=== PATIENT | female | born 1995 | race Two or more races ===

== ENCOUNTER 2020-07-20 00:30 | Emergency (ER) | payer MEDICAID ==
[2020-07-20] MEDS ORDERED: Acetaminophen/oxyCODONE 325-5 MG Tab PO ONE (00:45)
--- NOTE | 2020-07-20 00:45 | EDM.PDOC ---
ED HPI GENERAL MEDICAL PROBLEM - General Stated Complaint: OVARIAN CYST Time Seen by Provider: 07/20/20 00:40 Source of Information: Reports: Patient History Limitations: Reports: No Limitations - History of Present Illness INITIAL COMMENTS - FREE TEXT/NARRATIVE: 25-year-old female with history of chlamydia presents with left labia swelling and pain for 3 days. Denies fever, chills, diarrhea, vaginal discharge. She is sexually active with her partner of 5 years. ROS: A 10-point review of systems, other than pertinent positives and negatives as stated per HPI, is otherwise negative Past medical history: No additional pertinent history Past Surgical history: No additional pertinent history Social history: No additional pertinent history Family history: No additional pertinent history PHYSICAL EXAM General: AOx4, GCS = 15, moderate distress HEENT: dry mucous membrane Neck: supple, no meningismus, no Kernig or Brudzinski Cardiac: S1S2 RRR Respiratory: CTAB, no crackles or rales, no wheezing Abdomen: Soft, nontender, no rebound or guarding, nondistended, no pulsatile mass. : tender golfball size bartholin abscess to left labia. Back: nontender Musculoskeletal: NVI distally, no deformity Neuro: No focal deficits Vaginal Pain Score (Numeric/FACES): 10 - Related Data Allergies Allergy/AdvReac Type Severity Reaction Status Date / Time No Known Allergies Allergy Verified 07/20/20 00:47 Home Meds: Home Meds Acetaminophen/oxyCODONE [Percocet 325-5 MG] 1 each PO Q6H PRN #12 tab 07/20/20 [Rx] ED ROS GENERAL - Review of Systems Review Of Systems: Comprehensive ROS is negative, except as noted in HPI. ED EXAM, RENAL/ - Physical Exam Exam: See Below (see dictation) ED PROCEDURES - Additional/Other Procedure(s) Procedure(s) (Free Text): INCISION & DRAINAGE: Time performed: 215. A time-out was completed verifying correct patient, procedure, site, positioning, and special equipment if applicable. Indication: Bartholin abscess. Location: Left labia. The area of maximal induration and fluctuance was anesthetized using lidocaine 1% with epinephrine, and a total of 10ml was administered. Incision was created with a #11 blade scalpel. Abscess was manually decompressed and probed, with loculations decompressed. This was met with large amount 10ml of prurulent drainage. The wound was packed with packing tape. Patient tolerated well. Time spent: 30min Course - Vital Signs Last Recorded V/S: Last Vital Signs Temp 96.9 F 07/20/20 00:45 Pulse 102 H 07/20/20 00:45 Resp 18 07/20/20 00:45 BP 122/86 07/20/20 00:45 Pulse Ox 99 07/20/20 00:45 - Orders/Labs/Meds Orders: Active Orders 24 hr Category Date Time Status Pelvic Exam, Set Up [RC] ASDIRECTED Care 07/20/20 01:02 Active TRICH/LEODAN/CAND BY DNA PROBE [MOLEC] Stat Lab 07/20/20 01:01 Ordered UA W/MICROSCOPIC [URIN] Stat Lab 07/20/20 01:01 Ordered Meds: Medications Discontinued Medications Generic Name Dose Route Start Last Admin Trade Name Freq PRN Reason Stop Dose Admin Lidocaine/Epinephrine 20 ml 07/20/20 02:12 Xylocaine 1% With Epinephrine 1:100,000 INJECT 07/20/20 02:13 ONETIME ONE Oxycodone/Acetaminophen 1 tab 07/20/20 00:45 07/20/20 00:50 Percocet 325-5 Mg PO 07/20/20 00:46 1 tab ONETIME ONE Administration - Re-Assessments/Exams Free Text/Narrative Re-Assessment/Exam: 07/20/20 02:52 After I&D in the ER, she improved and is currently stable for discharge. Swabs were sent and results pending. I advised the patient to return to the ER for reevaluation if symptoms worsened, including fever, worsening pain, or any other worrisome symptoms. I instructed the patient to follow up with [facility] within 2-3 days for packing change. MEDICAL DECISION MAKING: I reviewed the patients past medical records, lab and radiographic findings. I discussed the case with the patient. My differential diagnosis included: bartholin cyst, Bartholin abscess. I do not suspect Rodney gangrene. Departure - Departure Time of Disposition: 02:50 Disposition: Home, Self-Care 01 Condition: Good Clinical Impression: Bartholin's gland abscess - Discharge Information *PRESCRIPTION DRUG MONITORING PROGRAM REVIEWED*: Not Applicable *COPY OF PRESCRIPTION DRUG MONITORING REPORT IN PATIENT SHASHANK: Not Applicable Prescriptions: Acetaminophen/oxyCODONE [Percocet 325-5 MG] 1 each PO Q6H PRN #12 tab PRN Reason: Pain (Moderate 4-6) Instructions: Pain Medicine Instructions, [id number] Referrals: PCP,None [Primary Care Provider] - Forms: ED Department Discharge Additional Instructions: The need for follow-up, as well as the timing and circumstances, are variable depending upon the specifics of your emergency department visit. If you don't have a primary care physician on staff, we will provide you with a referral. We always advise you to contact your personal physician following an emergency department visit to inform them of the circumstance of the visit and for follow-up with them and/or the need for any referrals to a consulting specialist. The emergency department will also refer you to a specialist when appropriate. This referral assures that you have the opportunity for follow-up care with a specialist. All of these measure are taken in an effort to provide you with optimal care, which includes your follow-up. Under all circumstances we always encourage you to contact your private physician who remains a resource for coordinating your care. When calling for follow-up care, please make the office aware that this follow-up is from your recent emergency room visit. If for any reason you are refused follow-up, please contact the [facility] Emergency Department at and asked to speak to the emergency department charge nurse. [facility] [address] [place] [id number] Sepsis Event Note (ED) - Focused Exam Vital Signs: Vital Signs Temp Pulse Resp BP Pulse Ox 07/20/20 00:45 96.9 F 102 H 18 122/86 99 - My Orders Last 24 Hours: My Active Orders 07/20/20 01:01 TRICH/LEODAN/CAND BY DNA PROBE [MOLEC] Stat UA W/MICROSCOPIC [URIN] Stat 07/20/20 01:02 Pelvic Exam, Set Up [RC] ASDIRECTED - Assessment/Plan Last 24 Hours: My Active Orders 07/20/20 01:01 TRICH/LEODAN/CAND BY DNA PROBE [MOLEC] Stat UA W/MICROSCOPIC [URIN] Stat 07/20/20 01:02 Pelvic Exam, Set Up [RC] ASDIRECTED
[2020-07-20] MEDS ORDERED: Lidocaine 1% with EPINEPHrine 1:100,000 20 ML MDV INJECT ONE (02:12)
[2020-07-20] MEDS ORDERED: Ketorolac 30 MG/ML SDV IM ONE (02:51)
== END 2020-07-20 03:14 | disposition home or self-care (01) ==
LOC: MW.ED 00:30
DX: N75.1 Abscess of Bartholin's gland (principal)
CPT/HCPCS: 56420; 87480; 87491; 87510; 87591; 87660; 96372; 99283; A9270; J1885; 10061

== ENCOUNTER 2020-11-06 09:44 | Emergency (ER) | payer OTHER ==
[2020-11-06 10:31] LABS: BLOOD UREA NITROGEN,BUN 13 mg/dL (7.0-18.0); CARBON DIOXIDE,CO2 23.6 mmol/L (21.0-32.0); CHLORIDE,CL 105 mmol/L (98-107); GLUCOSE RANDOM 87 mg/dL (74-106); LIPASE 69 U/L (73-393); POTASSIUM,K 3.8 mmol/L (3.5-5.1); SODIUM,NA 139 mmol/L (136-145)
--- NOTE | 2020-11-06 10:53 | EDM.PDOC ---
ED HPI GENERAL MEDICAL PROBLEM - General Chief Complaint: Abdominal Pain Stated Complaint: ABDOMINAL PAIN Time Seen by Provider: 11/06/20 09:57 Source of Information: Reports: Patient History Limitations: Reports: No Limitations - History of Present Illness INITIAL COMMENTS - FREE TEXT/NARRATIVE: HISTORY AND PHYSICAL: History of present illness: Patient is a 25-year-old female who presents to the emergency room with complaints of low abdominal pain. She states she woke up with the pain and proceeded to go to work. While at work she states she was unable to take the discomfort and decided to come to the emergency room. Pain is midline just below the umbilicus and describes it as cramping sensation. Patient denies any fever, chills, headache, change in vision, syncope or near syncope. Denies any chest pain, back pain, shortness of breath or cough. Denies any nausea, vomiting, diarrhea, constipation or dysuria. Has not noted any blood in urine or stool. Patient reports her menstrual period was 2 weeks ago, she typically does have heavy menses lasting 3 days. She is currently not on control and is sexually active, states there is a chance of . She has no concerns for STDs, denies any vaginal bleeding or discharge at this time. Patient has been eating and drinking appropriately. Review of systems: As per history of present illness and below otherwise all systems reviewed and negative. Past medical history: As per history of present illness and as reviewed below otherwise noncontributory. Surgical history: As per history of present illness and as reviewed below otherwise noncontributory. Social history: See social history for further information Family history: As per history of present illness and as reviewed below otherwise noncontributory. Physical exam: General: Well developed and well nourished 25 year old black female. Alert and orientated x 3. Nontoxic in appearance and in no acute distress. Vital signs are stable and have been reviewed by me. Nursing notes were reviewed. HEENT: Atraumatic, normocephalic, pupils equal and reactive bilaterally, negative for conjunctival pallor or scleral icterus, mucous membranes moist, TMs normal bilaterally, throat clear, neck supple, nontender, trachea midline. No drooling or trismus noted. No meningeal signs. No hot potato voice noted. Lungs: Clear to auscultation, breath sounds equal bilaterally, chest nontender. Normal work of breathing, no accessory muscles used. Heart: S1S2, regular rate and rhythm without overt murmur Abdomen: Soft, nondistended, mild suprapubic midline tenderness. Negative for masses or hepatosplenomegaly. Negative for costovertebral tenderness. Skin: Intact, warm, dry. No lesions or rashes noted. Hematologic: No petechiae or purpra. Mucosa appropriate color and normal nail bed color and refill. Extremities: Atraumatic, moves all extremities per self without difficulty or deficits, negative for cords or calf pain. Neurovascular unremarkable. Neuro: Awake, alert, oriented. Cranial nerves II through XII unremarkable. Cerebellum unremarkable. Motor and sensory unremarkable throughout. Exam nonfocal. Psychiatric: Mood and affect are appropriate. Normal thought process. Answering questions appropriately. Notes: Patient's lab work shows she has iron deficiency anemia. Patient states she is aware of this although does not take any iron supplements. She does not have any dizziness, fatigue, chest pain. I did encourage her to follow-up with primary care and start an [id number] iron replacement. I have talked with the patient about today's findings, in addition to providing specific details for plan of care. Reassessment at the time of disposition demonstrates that the patient is in no acute distress. The patient is stable for discharge, counseling was provided and we discussed in great detail signs and symptoms that would prompt them to return to the Emergency Department. Medication, follow up and supportive care measures were reviewed and discussed. Voices understanding and is agreeable to plan of care. Denies any further questions or concerns at this time. Diagnostics: CBC, CMP, UA, urine , lipase Therapeutics: Tramadol Prescription: None Impression: Abdominal pain Iron deficiency anemia Plan: 1. Encourage small frequent sips of fluids to prevent dehydration. [place] diet over the next 24-48 hours, advance as tolerated. 2. Tylenol and/or Ibuprofen as needed for pain and fever management. 3. If you should develop worsening symptoms, new symptoms develop or any of the symptoms we discussed - RETURN to the ED as we discussed. 4. Follow up with your primary care provider or the general surgeon as we discussed. Definitive disposition and diagnosis as appropriate pending reevaluation and review of above. Onset: Today Duration: Hour(s): Location: Reports: Abdomen middle lower abdomen Pain Score (Numeric/FACES): 4 - Related Data Allergies Allergy/AdvReac Type Severity Reaction Status Date / Time No Known Allergies Allergy Verified 11/06/20 09:57 Home Meds: Home Meds . [No Known Home Meds] 11/06/20 [History] Past Medical History - Past Health History Medical/Surgical History: Denies Medical/Surgical History HEENT History: Reports: None Cardiovascular History: Reports: None Respiratory History: Reports: None Gastrointestinal History: Reports: None Genitourinary History: Reports: None FRONT DESK ADMIN History: Reports: None Musculoskeletal History: Reports: None Neurological History: Reports: None Psychiatric History: Reports: None Endocrine/Metabolic History: Reports: None Hematologic History: Reports: None Immunologic History: Reports: None Oncologic (Cancer) History: Reports: None Dermatologic History: Reports: Eczema - Infectious Disease History Infectious Disease History: Reports: None - Past Surgical History Head Surgeries/Procedures: Reports: None Social & Family History - Tobacco Use Tobacco Use Status *Q: Never Tobacco User - Caffeine Use Caffeine Use: Reports: None - Recreational Drug Use Recreational Drug Use: Yes Recreational Drug Type: Reports: Marijuana/Hashish ED ROS GENERAL - Review of Systems Review Of Systems: Comprehensive ROS is negative, except as noted in HPI. ED EXAM, GI/ABD - Physical Exam Exam: See Below Course - Vital Signs Last Recorded V/S: Last Vital Signs Temp 97.5 F 11/06/20 09:54 Pulse 78 11/06/20 10:36 Resp 16 11/06/20 10:36 BP 105/69 11/06/20 10:36 Pulse Ox 98 11/06/20 10:36 - Orders/Labs/Meds Labs: Laboratory Tests 11/06/20 11/06/20 11/06/20 Range/Units 10:02 10:02 10:03 WBC 6.82 (4.0-11.0) K/uL RBC 4.88 (4.30-5.90) M/uL Hgb 8.3 L (12.0-16.0) g/dL Hct 30.0 L (36.0-46.0) % MCV 61.5 L (80.0-98.0) fL MCH 17.0 L (27.0-32.0) pg MCHC 27.7 L (31.0-37.0) g/dL RDW Std Deviation 43.2 (28.0-62.0) fl RDW Coeff of Genesis 19 H (11.0-15.0) % Plt Count 328 (150-400) K/uL Neut % (Auto) 71.5 (48.0-80.0) % Lymph % (Auto) 18.0 (16.0-40.0) % Cedar % (Auto) 6.5 (0.0-15.0) % Eos % (Auto) 3.1 (0.0-7.0) % Baso % (Auto) 0.9 (0.0-1.5) % Neut # (Auto) 4.9 (1.4-5.7) K/uL Lymph # (Auto) 1.2 (0.6-2.4) K/uL Cedar # (Auto) 0.4 (0.0-0.8) K/uL Eos # (Auto) 0.2 (0.0-0.7) K/uL Baso # (Auto) 0.1 (0.0-0.1) K/uL Nucleated RBC % 0.0 /100WBC Nucleated RBCs # 0 K/uL Sodium 139 (136-145) mmol/L Potassium 3.8 (3.5-5.1) mmol/L Chloride 105 (98-107) mmol/L Carbon Dioxide 23.6 (21.0-32.0) mmol/L BUN 13 (7.0-18.0) mg/dL Creatinine 0.7 (0.6-1.0) mg/dL Est Cr Clr Drug Dosing 98.86 mL/min Estimated GFR (MDRD) > 60.0 ml/min Glucose 87 (74-106) mg/dL Calcium 8.8 (8.5-10.1) mg/dL Total Bilirubin 0.5 (0.2-1.0) mg/dL AST 18 (15-37) IU/L ALT 19 (14-63) IU/L Alkaline Phosphatase 92 (46-116) U/L Total Protein 8.4 H (6.4-8.2) g/dL Albumin 3.8 (3.4-5.0) g/dL Globulin 4.6 H (2.6-4.0) g/dL Albumin/Globulin Ratio 0.8 L (0.9-1.6) Lipase 69 L (73-393) U/L Urine Color YELLOW Urine Appearance CLEAR Urine pH 7.5 (5.0-8.0) Ur Specific [place] 1.020 (1.001-1.035) Urine Protein NEGATIVE (NEGATIVE) mg/dL Urine Glucose (UA) NEGATIVE (NEGATIVE) mg/dL Urine Ketones NEGATIVE (NEGATIVE) mg/dL Urine Occult Blood NEGATIVE (NEGATIVE) Urine Nitrite NEGATIVE (NEGATIVE) Urine Bilirubin NEGATIVE (NEGATIVE) Urine Urobilinogen 0.2 (<2.0) EU/dL Ur Leukocyte Esterase NEGATIVE (NEGATIVE) Urine HCG, Qual (NEGATIVE) 11/06/20 Range/Units 10:03 WBC (4.0-11.0) K/uL RBC (4.30-5.90) M/uL Hgb (12.0-16.0) g/dL Hct (36.0-46.0) % MCV (80.0-98.0) fL MCH (27.0-32.0) pg MCHC (31.0-37.0) g/dL RDW Std Deviation (28.0-62.0) fl RDW Coeff of Genesis (11.0-15.0) % Plt Count (150-400) K/uL Neut % (Auto) (48.0-80.0) % Lymph % (Auto) (16.0-40.0) % Cedar % (Auto) (0.0-15.0) % Eos % (Auto) (0.0-7.0) % Baso % (Auto) (0.0-1.5) % Neut # (Auto) (1.4-5.7) K/uL Lymph # (Auto) (0.6-2.4) K/uL Cedar # (Auto) (0.0-0.8) K/uL Eos # (Auto) (0.0-0.7) K/uL Baso # (Auto) (0.0-0.1) K/uL Nucleated RBC % /100WBC Nucleated RBCs # K/uL Sodium (136-145) mmol/L Potassium (3.5-5.1) mmol/L Chloride (98-107) mmol/L Carbon Dioxide (21.0-32.0) mmol/L BUN (7.0-18.0) mg/dL Creatinine (0.6-1.0) mg/dL Est Cr Clr Drug Dosing mL/min Estimated GFR (MDRD) ml/min Glucose (74-106) mg/dL Calcium (8.5-10.1) mg/dL Total Bilirubin (0.2-1.0) mg/dL AST (15-37) IU/L ALT (14-63) IU/L Alkaline Phosphatase (46-116) U/L Total Protein (6.4-8.2) g/dL Albumin (3.4-5.0) g/dL Globulin (2.6-4.0) g/dL Albumin/Globulin Ratio (0.9-1.6) Lipase (73-393) U/L Urine Color Urine Appearance Urine pH (5.0-8.0) Ur Specific [place] (1.001-1.035) Urine Protein (NEGATIVE) mg/dL Urine Glucose (UA) (NEGATIVE) mg/dL Urine Ketones (NEGATIVE) mg/dL Urine Occult Blood (NEGATIVE) Urine Nitrite (NEGATIVE) Urine Bilirubin (NEGATIVE) Urine Urobilinogen (<2.0) EU/dL Ur Leukocyte Esterase (NEGATIVE) Urine HCG, Qual NEGATIVE (NEGATIVE) Meds: Medications Discontinued Medications Generic Name Dose Route Start Last Admin Trade Name Freq PRN Reason Stop Dose Admin Tramadol HCl 50 mg 11/06/20 11:03 Ultram PO 11/06/20 11:04 ONETIME ONE Departure - Departure Time of Disposition: 11:11 Disposition: Home, Self-Care 01 Clinical Impression: Abdominal pain Qualifiers: Abdominal location: lower abdomen, unspecified Qualified Code(s): R10.30 - Lower abdominal pain, unspecified Iron deficiency anemia Qualifiers: Iron deficiency anemia type: unspecified iron deficiency Qualified Code(s): D50.9 - Iron deficiency anemia, unspecified - Discharge Information Instructions: Abdominal Pain, Adult, [id number] Referrals: PCP,Not In Area [Primary Care Provider] - Forms: ED Department Discharge Additional Instructions: The following information is given to patients seen in the emergency department who are being discharged to home. This information is to outline your options for follow-up care. We provide all patients seen in our emergency department with a follow-up referral. The need for follow-up, as well as the timing and circumstances, are variable depending upon the specifics of your emergency department visit. If you don't have a primary care physician on staff, we will provide you with a referral. We always advise you to contact your personal physician following an emergency department visit to inform them of the circumstance of the visit and for follow-up with them and/or the need for any referrals to a consulting specialist. The emergency department will also refer you to a specialist when appropriate. This referral assures that you have the opportunity for follow-up care with a specialist. All of these measure are taken in an effort to provide you with optimal care, which includes your follow-up. Under all circumstances we always encourage you to contact your private physician who remains a resource for coordinating your care. When calling for follow-up care, please make the office aware that this follow-up is from your recent emergency room visit. If for any reason you are refused follow-up, please contact the [facility] Emergency Department at and asked to speak to the emergency department charge nurse. [facility] Primary [facility] [address] [place] [id number] [facility] [address] [place] [phone] Thank you for choosing the [facility] emergency department in [place] for your medical needs today. It was a pleasure caring for you. Today you were seen in the emergency department for abdominal pain. 1. Encourage small frequent sips of fluids to prevent dehydration. [place] diet over the next 24-48 hours, advance as tolerated. 2. Tylenol and/or Ibuprofen as needed for pain and fever management. 3. If you should develop worsening symptoms, new symptoms develop or any of the symptoms we discussed - RETURN to the ED as we discussed. 4. Follow up with your primary care provider or the general surgeon as we discussed. Sepsis Event Note (ED) - Evaluation Sepsis Screening Result: No Definite Risk - Focused Exam Vital Signs: Vital Signs Temp Pulse Resp BP Pulse Ox 11/06/20 10:36 78 16 105/69 98 11/06/20 09:54 97.5 F 82 16 133/76 100
[2020-11-06] MEDS ORDERED: traMADol 50 MG Tab PO ONE (11:03)
--- NOTE | 2020-11-08 20:28 | PCM.SN.2 ---
- Free Text/Narrative Note: Performed routine telephone follow-up, patient has no concerns or questions and is doing well.
== END 2020-11-06 11:34 | disposition home or self-care (01) ==
LOC: MW.ED 09:44
DX: R10.30 Lower abdominal pain, unspecified (principal); D50.9 Iron deficiency anemia, unspecified
CPT/HCPCS: 36415; 80053; 81003; 81025; 83690; 85025; 99284; A9270; 99283

== ENCOUNTER 2020-11-06 19:17 | Emergency (ER) | payer OTHER ==
--- NOTE | 2020-11-06 19:21 | EDM.PDOC ---
ED HPI GENERAL MEDICAL PROBLEM - General Chief Complaint: Gastrointestinal Problem Stated Complaint: Abdominal pain Time Seen by Provider: 11/06/20 19:19 Source of Information: Reports: Patient, EMS, Old Records History Limitations: Reports: No Limitations - History of Present Illness INITIAL COMMENTS - FREE TEXT/NARRATIVE: This is a very pleasant 25-year-old female with a past medical history of iron deficiency anemia presenting with abdominal pain. She was seen in our emergency department earlier today around 10:00 in the morning for lower abdominal pain. I did speak with the nurse practitionerr that took care of the patient earlier today, the patient apparently the patient declined any imaging studies such as a CT scan and was discharged from the emergency department. Her lab work that showed microcytic anemia which is not new. Urine test was negative, urinalysis was bland. Metabolic panel and LFTs were reassuring, lipase was negative. Vital signs here show borderline tachycardia, mildly low temperature which we will recheck orally. Paramedics administered 50 mcg of fentanyl prior to arrival. This evening she presents back to the emergency department, with complaints of worsening right lower quadrant abdominal pain. She states that the tramadol helps with the pain and at 1 point it totally went away, but then it came back and was much worse than before. She has not had much of an appetite today. Denies any fever, chills, nausea, vomiting, hematemesis, diarrhea, bloody stools, vaginal bleeding or discharge, or flank pain. ROS: A 10-point review of systems was negative, except as noted in the HPI (or in the ROS section of this note). Past medical history: Reviewed, no additional pertinent history. Surgical history: Reviewed in system, no additional pertinent history. Social history: Reviewed in system, no additional pertinent history. Family history: Reviewed in system, no additional pertinent history. PHYSICAL EXAM Vital signs reviewed. Nursing notes reviewed. Constitutional: Awake, alert, non-distressed. Head: Normocephalic, atraumatic. Eyes: EOMI, conjunctiva normal, no discharge, no scleral icterus. Ears, Nose, Throat: External ears and nose normal, moist oral mucosa. Cardiovascular: 2+ radial pulse, capillary refill less than 2 seconds. Pulmonary: normal work of breathing, no accessory muscle use. Abdomen/GI: Soft, moderate right lower quadrant tenderness, nondistended, no guarding or rigidity, no masses. Tenderness to palpation at McBurney's point. No CVA tenderness. No rebound tenderness. (Female) Exam: Normal External Exam, Adnexal Tenderness (Right-sided), Vaginal Bleeding (Scant). No: Cervical Fluid, Cervical Lesions, Cervix Motion Tenderness, Vaginal Discharge, Vaginal Lesions, Vaginal Tears, chaperoned by STEFANY Terrell. Musculoskeletal: No deformities. Integumentary: Appropriate color for ethnicity, warm, dry, no pallor or jaundice, no rash. Neurologic: Alert, answering questions appropriately, normal speech, no facial droop, moving all extremities well. Psychiatric: Appropriate mood and affect, normal thought process. This patient was seen and evaluated during the 2019 SARS-CoV-2 novel coronavirus pandemic period. Community viral transmission is ongoing at time of this en counter and the emergency department is operating under pandemic response procedures. Right Lower Abdomen Pain Score (Numeric/FACES): 2 - Related Data Allergies Allergy/AdvReac Type Severity Reaction Status Date / Time banana Allergy Numbness Verified 11/06/20 19:19 ze Allergy Numbness Verified 11/06/20 19:19 pineapple Allergy Numbness Verified 11/06/20 19:19 Home Meds: Home Meds Ferrous Sulfate [Ferosul] 325 mg PO ASDIRECTED 60 Days #30 tablet 11/06/20 [Rx] Past Medical History - Past Health History Medical/Surgical History: Denies Medical/Surgical History HEENT History: Reports: None Cardiovascular History: Reports: None Respiratory History: Reports: None Gastrointestinal History: Reports: None Genitourinary History: Reports: None [facility] History: Reports: None Musculoskeletal History: Reports: None Neurological History: Reports: None Psychiatric History: Reports: None Endocrine/Metabolic History: Reports: None Hematologic History: Reports: None Immunologic History: Reports: None Oncologic (Cancer) History: Reports: None Dermatologic History: Reports: Eczema - Infectious Disease History Infectious Disease History: Reports: None - Past Surgical History Head Surgeries/Procedures: Reports: None Social & Family History - Caffeine Use Caffeine Use: Reports: None ED ROS GENERAL - Review of Systems Review Of Systems: See Below ED EXAM, GI/ABD - Physical Exam Exam: See Below (Female) Exam: Normal External Exam, Adnexal Tenderness (Right-sided), Vaginal Bleeding (Scant). No: Cervical Fluid, Cervical Lesions, Cervix Motion Tenderness, Vaginal Discharge, Vaginal Lesions, Vaginal Tears Course - Vital Signs Text/Narrative:: 25-year-old female presenting with worsening right lower quadrant abdominal pain and anorexia. Patient hemodynamically stable, afebrile, well-appearing, looks nontoxic. Differential diagnosis includes but is not limited to: Appendicitis, ovarian cyst, ruptured ovarian cyst, ovarian torsion, kidney stone, tubo-ovarian abscess, intra-abdominal infection, PID, bowel obstruction, ileus, etc. 7:37 PM: Patient states that her pain is much better after fentanyl from the paramedics. She is n.p.o. We are giving her IV fluids, rechecking a CBC, and will obtain a CT scan of the abdomen/pelvis. We will plan for pelvic exam. 8:43 PM: CBC shows mildly worsening microcytic anemia. CT abdomen/pelvis shows a partially visualized appendix that shows no evidence of appendicitis and an irregular 2 cm right adnexal cystic structure. We are going to perform a pelvic examination and get a pelvic ultrasound to further evaluate this abnormality. 9:17 PM: We performed a chaperoned pelvic examination which showed a small amount of blood in the vaginal vault although the patient believes she is starting her normal menstrual cycle. She did have moderate right adnexal tenderness but no evidence of any lesions. We are going to obtain a transvaginal pelvic ultrasound. She is resting comfortably and does not want any further analgesic medications. 9:54 PM: Pelvic ultrasound study is being performed. Ordered additional IV fentanyl. 10:59 PM: Transvaginal ultrasound showed that the right ovary has an isoechoic rounded structure in the medial portion the ovary concerning for hemorrhagic cyst versus solid mass and the radiologist recommended repeat ultrasound in 4 to 6 weeks, the left ovary also had a hemorrhagic cyst. There is normal color and pulse Doppler flow in both ovaries and mild amount of free fluid in the cul-de-sac. There were no uterine abnormalities appreciated. I repeated the abdominal examination, the abdomen is soft and minimally tender. The patient is feeling better. I am reasonably suspicious that the patient's symptoms are due to a right-sided ovarian cyst. I have a low suspicion for appendicitis or intra-abdominal surgical emergency. Although the appendix was only partially visualized, the visualized segment did not appear consistent with appendicitis, the patient is afebrile, does not have a leukocytosis, and is not vomiting. I would expect her to show evolving symptoms throughout the day since she was seen earlier this morning. There is no evidence of AAA, kidney stone, ultrasound is not concerning for ovarian torsion, there is no discharge noted on the health examination to suggest PID or TOA, no evidence of bowel obstruction or ileus by CT scan, etc. Her hemoglobin is slightly lower than this morning and I am going to prescribe her an iron supplement to berry picker at the pharmacy. I counseled her that she needs to follow-up with an [facility] clinic in the next few weeks for further evaluation, likely need for repeat ultrasound, and further work-up of her anemia. She voiced understanding. We discussed taking [id number] ibuprofen at home and she was prescribed tramadol earlier today. Plan: Patient is stable to discharge home with outpatient [facility] clinic follow- up. Strict emergency department return precautions were provided, patient indicated understanding. All questions were answered prior to departure. Discharged in good condition. Last Recorded V/S: Last Vital Signs Temp 36.8 C 11/06/20 19:49 Pulse 90 11/06/20 21:40 Resp 14 11/06/20 21:40 BP 132/71 11/06/20 21:40 Pulse Ox 100 11/06/20 21:40 - Orders/Labs/Meds Orders: Active Orders 24 hr Category Date Time Status Pelvic Exam, Set Up [RC] ASDIRECTED Care 11/06/20 19:36 Active Nothing Per Oral Diet [DIET] Diet 11/06/20 Dinner Active Sodium Chloride 0.9% [Saline Flush] Med 11/06/20 19:22 Active 10 ml FLUSH ASDIRECTED PRN Sodium Chloride 0.9% [Saline Flush] Med 11/06/20 19:22 Active 2.5 ml FLUSH ASDIRECTED PRN Saline Lock Insert [OM.PC] Stat Oth 11/06/20 19:22 Ordered Medication Orders Sodium Chloride (Saline Flush) 10 ml FLUSH ASDIRECTED PRN PRN Reason: Keep Vein Open Last Admin: 11/06/20 19:27 Dose: 10 ml Documented by: ZOILA Sodium Chloride (Saline Flush) 2.5 ml FLUSH ASDIRECTED PRN PRN Reason: Keep Vein Open Last Admin: 11/06/20 19:27 Dose: 2.5 ml Documented by: ZOILA Labs: Laboratory Tests 11/06/20 Range/Units 19:28 WBC 8.10 (4.0-11.0) K/uL RBC 4.72 (4.30-5.90) M/uL Hgb 8.1 L (12.0-16.0) g/dL Hct 28.6 L (36.0-46.0) % MCV 60.6 L (80.0-98.0) fL MCH 17.2 L (27.0-32.0) pg MCHC 28.3 L (31.0-37.0) g/dL RDW Std Deviation 42.3 (28.0-62.0) fl RDW Coeff of Genesis 19 H (11.0-15.0) % Plt Count 322 (150-400) K/uL Neut % (Auto) 57.5 (48.0-80.0) % Lymph % (Auto) 34.9 (16.0-40.0) % Gibson % (Auto) 5.2 (0.0-15.0) % Eos % (Auto) 2.0 (0.0-7.0) % Baso % (Auto) 0.4 (0.0-1.5) % Neut # (Auto) 4.7 (1.4-5.7) K/uL Lymph # (Auto) 2.8 H (0.6-2.4) K/uL Gibson # (Auto) 0.4 (0.0-0.8) K/uL Eos # (Auto) 0.2 (0.0-0.7) K/uL Baso # (Auto) 0.0 (0.0-0.1) K/uL Nucleated RBC % 0.0 /100WBC Nucleated RBCs # 0 K/uL Meds: Medications Generic Name Dose Route Start Last Admin Trade Name Freq PRN Reason Stop Dose Admin Sodium Chloride 10 ml 11/06/20 19:22 11/06/20 19:27 Saline Flush FLUSH 10 ml ASDIRECTED PRN Administration Keep Vein Open Sodium Chloride 2.5 ml 11/06/20 19:22 11/06/20 19:27 Saline Flush FLUSH 2.5 ml ASDIRECTED PRN Administration Keep Vein Open Discontinued Medications Generic Name Dose Route Start Last Admin Trade Name Jennifer PRN Reason Stop Dose Admin Fentanyl Confirm 11/06/20 21:49 11/06/20 21:59 Fentanyl Administered 11/06/20 21:50 Not Given Dose 50 mcg .ROUTE .STK-MED ONE Fentanyl 50 mcg 11/06/20 21:54 11/06/20 22:00 Fentanyl IVPUSH 11/06/20 21:55 50 mcg ONETIME ONE Administration Lactated Ringer's 1,000 mls @ 999 mls/hr 11/06/20 19:33 11/06/20 19:41 Ringers, Lactated IV 11/06/20 20:33 999 mls/hr .BOLUS ONE Administration Iopamidol 75 ml 11/06/20 20:17 11/06/20 20:18 Isovue Multipack-370 (76%) IVPUSH 11/06/20 20:18 75 ml ONETIME STA Administration Departure - Departure Time of Disposition: 23:02 Disposition: Home, Self-Care 01 Condition: Good Clinical Impression: Right lower quadrant abdominal pain, Microcytic anemia - Discharge Information *PRESCRIPTION DRUG MONITORING PROGRAM REVIEWED*: Not Applicable *COPY OF PRESCRIPTION DRUG MONITORING REPORT IN PATIENT SHASHANK: Not Applicable Prescriptions: Ferrous Sulfate [Ferosul] 325 mg PO ASDIRECTED 60 Days #30 tablet Instructions: Preventing Iron Deficiency Anemia, Adult, Abdominal Pain, Adult, [id number] Referrals: [facility] [Provider Group] - 1 Week (For further evaluation of abdominal pain and anemia and likely ovarian cyst.) Forms: ED Department Discharge Additional Instructions: You were seen in the emergency department for abdominal pain. Your ultrasound was concerning for ovarian cysts. Your CT scan was not consiste nt with appendicitis. Your blood work shows that you have known anemia. I sent a prescription for an iron supplement medication to the pharmacy, take this as directed. There is no evidence of an emergency problem that would require surgery at this point or admission to the hospital. Typically ovarian cysts can be treated at home with pain medications and following up in [facility] clinic. You were prescribed tramadol earlier today and you can also take [id number] ibuprofen, 400 mg every 6 hours as needed for pain. Warning signs to come back to the ER include: Fever, worsening abdominal pain, heavy vaginal bleeding, severe vomiting, bloody vomit or bloody bowel movements, or any other new or concerning symptoms. Please return the emergency department immediately if your symptoms worsen or if you feel worse. Thank you for choosing the [facility] emergency department in [place] for your medical needs today. It was a pleasure caring for you. The following information is given to patients seen in the emergency department who are being discharged. This information is to outline your options for follow-up care. We provide all patients seen in our emergency department with a follow-up referral. The need for follow-up, as well as the timing and circumstances, are variable depending upon the specifics of your emergency department visit. If you don't have a primary care physician on staff, we will provide you with a referral. We always advise you to contact your personal physician following an emergency department visit to inform them of the circumstance of the visit and for follow-up with them and/or the need for any referrals to a consulting specialist. The emergency department will also refer you to a specialist when appropriate. This referral assures that you have the opportunity for follow-up care with a specialist. All of these measure are taken in an effort to provide you with optimal care, which includes your follow-up. Under all circumstances we always encourage you to contact your private physician who remains a resource for coordinating your care. When calling for follow-up care, please make the office aware that this follow-up is from your recent emergency room visit. If for any reason you are refused follow-up, please contact the [facility] Emergency Department at and asked to speak to the emergency department charge nurse. If you do not have a primary care physician that is caring for you, you can contact these clinics below to set up an appointment to establish care: [facility] - Primary Care [address] [place] [id number] [facility] [address] [place] [address] Sepsis Event Note (ED) - Evaluation Sepsis Screening Result: Possible Sepsis Risk - Focused Exam Vital Signs: Vital Signs Temp Temp Pulse Resp BP Pulse Ox 11/06/20 21:40 90 14 132/71 100 11/06/20 19:49 36.8 C 11/06/20 19:19 35.9 C L 98 16 132/87 100 - My Orders Last 24 Hours: My Active Orders 11/06/20 Dinner Nothing Per Oral Diet [DIET] 11/06/20 19:22 Sodium Chloride 0.9% [Saline Flush] 10 ml FLUSH ASDIRECTED PRN Sodium Chloride 0.9% [Saline Flush] 2.5 ml FLUSH ASDIRECTED PRN Saline Lock Insert [OM.PC] Stat 11/06/20 19:36 Pelvic Exam, Set Up [RC] ASDIRECTED - Assessment/Plan Last 24 Hours: My Active Orders 11/06/20 Dinner Nothing Per Oral Diet [DIET] 11/06/20 19:22 Sodium Chloride 0.9% [Saline Flush] 10 ml FLUSH ASDIRECTED PRN Sodium Chloride 0.9% [Saline Flush] 2.5 ml FLUSH ASDIRECTED PRN Saline Lock Insert [OM.PC] Stat 11/06/20 19:36 Pelvic Exam, Set Up [RC] ASDIRECTED
[2020-11-06] MEDS ORDERED: Sodium Chloride 0.9% 10 ML Syringe FLUSH PRN (19:22)
[2020-11-06] MEDS ORDERED: Sodium Chloride 0.9% 2.5 ML Syringe FLUSH PRN (19:22)
[2020-11-06] MEDS ORDERED: Lactated Ringers 1,000 ML IV ONE (19:33)
[2020-11-06] MEDS ORDERED: Iopamidol 755 MG/ML 500 ML Multipack Bottle IVPUSH STA (20:17)
--- NOTE | 2020-11-06 20:41 | CT ---
Indication: Right lower quadrant pain, anorexia, rule out appendicitis Technique: Contrast enhanced axial CT imaging through the abdomen and pelvis. 75 mL Isovue 370 contrast agent was administered intravenously. Sagittal and coronal reconstructions are provided. Comparison: None Findings: No abnormalities are demonstrated relating to the liver, gallbladder, spleen, pancreas, adrenal glands, and kidneys. The portal vein, hepatic veins, IVC, and renal veins are patent. There is normal caliber of the abdominal aorta. No lymphadenopathy is appreciated. The stomach and duodenum are unremarkable. There is no small bowel thickening or abnormal distention. The appendix is partially visualized, with the visualized portions appearing unremarkable. There is no colonic wall thickening. There is no mesenteric edema or intraperitoneal free fluid. The uterus is unremarkable. The ovaries are not well visualized. An irregular 2 cm adnexal cystic focus is suggested on the right. No significant free fluid is appreciated in the pelvis. The urinary bladder is unremarkable. There is mild levo convex lumbar spinal curvature with apex at L2-3. The osseous structures are otherwise unremarkable. The included lung bases are clear. Impression: 1. Partially visualized appendix without findings of appendicitis. 2. Irregular 2 cm right adnexal cystic structure. Consider follow-up ultrasound. Please note that all CT scans at this facility use dose modulation, iterative reconstruction, and/or weight-based dosing when appropriate to reduce radiation dose to as low as reasonably achievable. Dictated by Phani Riojas MD @ Nov 06 2020 8:27PM Signed by Dr. Phani Riojas @ Nov 06 2020 8:40PM
[2020-11-06] MEDS ORDERED: fentaNYL 50 MCG/ML SDV ONE (21:49)
[2020-11-06] MEDS ORDERED: fentaNYL 50 MCG/ML SDV IVPUSH ONE (21:54)
--- NOTE | 2020-11-06 22:51 | US ---
INDICATION: Right lower quadrant pain. Right adnexal pain. Cystic structure seen on CT. COMPARISON: CT of the abdomen and pelvis from earlier today. FINDINGS: Transvaginal ultrasound examination of the female pelvis was performed. The uterus is anteverted with no evidence of mass. It measures 6.8 x 4.4 x 3.3 cm. The endometrial lining is normal in thickness at 3 mm. The right ovary is located at the midline and towards the left. Consistent with medial positioning of the right ovary seen on the CT scan from earlier today. It has a dominant anechoic cyst measuring 1.6 x 0.9 x 1.5 centimeters. There is also a solid-appearing, well-circumscribed, rounded structure in the medial right ovary measuring 2.0 x 1.9 x 1.8 centimeters, isoechoic to the rest of the ovary, with mild peripheral color Doppler flow, but no flow centrally. This could be a solid mass or hemorrhagic cyst. Recommend follow-up ultrasound in 4-6 weeks. The left ovary has a hypoechoic cystic structure measuring 1.4 x 0.9 x 1.5 centimeters, probably a hemorrhagic cyst. There is no sign of increased color Doppler flow around this structure. The right ovary is mildly enlarged, measuring 4.1 x 2.7 x 4.3 cm. The left ovary is normal in size, measuring 2.7 x 1.7 x 3.1 cm. There is normal color and pulse doppler flow in both ovaries. There is a mild amount of free fluid in the cul-de-sac. IMPRESSION: Right ovary has an isoechoic rounded structure in the medial portion of the ovary with mildly increased peripheral color Doppler flow measuring up to 2.0 centimeters in diameter, hemorrhagic cyst versus solid mass. Recommend follow-up ultrasound in 4-6 weeks. Right ovary has a dominant simple follicular cyst measuring up to 1.6 centimeters in diameter. These results and mild enlargement of the right ovary. Left ovary has a hemorrhagic cyst measuring 1.5 centimeters in diameter. Small amount of free fluid in the cul-de-sac, nonspecific. Dictated by Kyle Morley MD @ Nov 06 2020 10:41PM Signed by Dr. Kyle Morley @ Nov 06 2020 10:49PM
== END 2020-11-06 23:04 | disposition home or self-care (01) ==
LOC: MW.ED 19:17
DX: R10.31 Right lower quadrant pain (principal); D50.9 Iron deficiency anemia, unspecified; Z91.018 Allergy to other foods
CPT/HCPCS: 36415; 74177; 76830; 85025; 96361; 96374; 99285; J3010; J7120; Q9967; 99283

== ENCOUNTER 2020-12-31 13:11 | Emergency (ER) | payer OTHER ==
--- NOTE | 2020-12-31 13:24 | EDM.PDOC ---
ED HPI GENERAL MEDICAL PROBLEM - General Stated Complaint: BLEEDING Time Seen by Provider: 12/31/20 13:17 Source of Information: Reports: Patient History Limitations: Reports: No Limitations - History of Present Illness INITIAL COMMENTS - FREE TEXT/NARRATIVE: HISTORY AND PHYSICAL: History of present illness: Review of systems: As per history of present illness and below otherwise all systems reviewed and negative. Past medical history: As per history of present illness and as reviewed below otherwise noncontributory. Surgical history: As per history of present illness and as reviewed below otherwise noncontributory. Social history: See social history for further information Family history: As per history of present illness and as reviewed below otherwise noncontributory. Physical exam: General: Well developed and well nourished. Alert and orientated x 3. Nontoxic in appearance and in no acute distress. Vital signs are stable and have been reviewed by me. Nursing notes were reviewed. HEENT: Atraumatic, normocephalic, pupils equal and reactive bilaterally, negative for conjunctival pallor or scleral icterus, mucous membranes moist, TMs normal bilaterally, throat clear, neck supple, nontender, trachea midline. No drooling or trismus noted. No meningeal signs. No hot potato voice noted. Lungs: Clear to auscultation bilaterally. No wheezes, rales, or rhonchi. Chest nontender. Normal work of breathing, no accessory muscles used. Heart: S1S2, regular rate and rhythm without overt murmur, gallops, or rubs. No JVD. No peripheral edema Abdomen: Soft, nondistended, nontender. Normoactive bowel sounds. Negative for masses or costovertebral tenderness. Pelvis: Stable nontender. Genitourinary/Rectal: Deferred. Skin: Intact, warm, dry. No lesions or rashes noted. Hematologic: No petechiae or purpra. Mucosa appropriate color and normal nail bed color and refill. Extremities: Atraumatic, moves all extremities per self without difficulty or deficits, negative for cords or calf pain. Neurovascular unremarkable. Neuro: Awake, alert, oriented. Cranial nerves II through XII unremarkable. Cerebellum unremarkable. Motor and sensory unremarkable throughout. Exam nonfocal. Psychiatric: Mood and affect are appropriate. Normal thought process. Answering questions appropriately. Notes: *This patient was seen and evaluated during the 2019 SARS-CoV-2 novel coronavirus pandemic period. Community viral transmission is ongoing at time of this encounter and the emergency department is operating under pandemic response procedures. I have talked with the patient about today's findings, in addition to providing specific details for plan of care. Reassessment at the time of disposition demonstrates that the patient is in no acute distress. The patient is stable for discharge, counseling was provided and we discussed in great detail signs and symptoms that would prompt them to return to the Emergency Department. Medication, follow up and supportive care measures were reviewed and discussed. Voices understanding and is agreeable to plan of care. Denies any further questions or concerns at this time. Diagnostics: Therapeutics: Prescription: Impression: Plan: 1. 2. You can alternate Tylenol and ibuprofen as needed for pain and fever management. 3. We encourage you to follow up with your primary care provider and/or recommended specialist in the next few days for re-evaluation and further care/management. 4. If your symptoms should worsen, new symptoms develop or any of the signs and symptoms we discussed should arise please return to the emergency room or call 911 (if needed). Definitive disposition and diagnosis as appropriate pending reevaluation and review of above. - Related Data Allergies Allergy/AdvReac Type Severity Reaction Status Date / Time banana Allergy Numbness Verified 11/06/20 19:19 ze Allergy Numbness Verified 11/06/20 19:19 pineapple Allergy Numbness Verified 11/06/20 19:19 Home Meds: Home Meds Ferrous Sulfate [Ferosul] 325 mg PO ASDIRECTED 60 Days #30 tablet 11/06/20 [Rx] Past Medical History - Past Health History Medical/Surgical History: Denies Medical/Surgical History HEENT History: Reports: None Cardiovascular History: Reports: None Respiratory History: Reports: None Gastrointestinal History: Reports: None Genitourinary History: Reports: None HUMAN RESOURCES MANAGER MANUFACTURING History: Reports: None Musculoskeletal History: Reports: None Neurological History: Reports: None Psychiatric History: Reports: None Endocrine/Metabolic History: Reports: None Hematologic History: Reports: None Immunologic History: Reports: None Oncologic (Cancer) History: Reports: None Dermatologic History: Reports: Eczema - Infectious Disease History Infectious Disease History: Reports: None - Past Surgical History Head Surgeries/Procedures: Reports: None Social & Family History - Caffeine Use Caffeine Use: Reports: Coffee
--- NOTE | 2020-12-31 13:55 | EDM.PDOC ---
ED HPI GENERAL MEDICAL PROBLEM - General Chief Complaint: MARKETING INTELLIGENCE ANALYST Problem Stated Complaint: BLEEDING Time Seen by Provider: 12/31/20 13:17 Source of Information: Reports: Patient History Limitations: Reports: No Limitations - History of Present Illness INITIAL COMMENTS - FREE TEXT/NARRATIVE: HISTORY AND PHYSICAL: History of present illness: Patient is a 25-year-old female who presents to the emergency room with complaints of light vaginal bleeding and right lower quadrant pressure. She states approximately 5 days ago she started her menstrual period, typically lasts 3 days. She had a light menses for 2 days, 3 days of no vaginal bleeding and now has started lightly spotting with some right lower quadrant pressure. She states she was seen in our emergency room on 11/06/2020 for vaginal bleeding and right lower quadrant pain. At that time she did have a transvaginal ultrasound that showed a hemorrhagic cyst versus solid mass. She was discharged home with close instruction to follow-up for repeat ultrasound in approximately 4 to 6 weeks. Patient states she failed to follow-up with anyone and was concerned as her symptoms returned today. Patient denies any fever, chills, headache, change in vision, syncope or near syncope. Denies any chest pain, back pain, shortness of breath or cough. Denies any abdominal pain, nausea, vomiting, diarrhea, constipation or dysuria. Has not noted any blood in urine or stool. She has no concerns for STIs. Patient has been eating and drinking appropriately. Review of systems: As per history of present illness and below otherwise all systems reviewed and negative. Past medical history: As per history of present illness and as reviewed below otherwise noncontributory. Surgical history: As per history of present illness and as reviewed below otherwise noncontributory. Social history: See social history for further information Family history: As per history of present illness and as reviewed below otherwise noncontributory. Physical exam: General: Well developed and well nourished 25 year old black female. Alert and orientated x 3. Nontoxic in appearance and in no acute distress. Vital signs are stable and have been reviewed by me. Nursing notes were reviewed. HEENT: Atraumatic, normocephalic, pupils equal and reactive bilaterally, negative for conjunctival pallor or scleral icterus, mucous membranes moist, TMs normal bilaterally, throat clear, neck supple, nontender, trachea midline. No drooling or trismus noted. No meningeal signs. No hot potato voice noted. Lungs: Clear to auscultation bilaterally. No wheezes, rales, or rhonchi. Chest nontender. Normal work of breathing, no accessory muscles used. Heart: S1S2, regular rate and rhythm without overt murmur, gallops, or rubs. No JVD. No peripheral edema Abdomen: Soft, nondistended, nontender. Normoactive bowel sounds. Negative for masses or costovertebral tenderness. Pelvis: Stable nontender. Genitourinary: This was done with consent and a terminal operations manager at the bedside. External genitalia WNL. Cervical oz closed, small mount of blood in vaginal vault, no active bleeding witnessed. No cervical motion tenderness. Skin: Intact, warm, dry. No lesions or rashes noted. Hematologic: No petechiae or purpra. Mucosa appropriate color and normal nail bed color and refill. Extremities: Atraumatic, moves all extremities per self without difficulty or deficits, negative for cords or calf pain. Neurovascular unremarkable. Neuro: Awake, alert, oriented. Cranial nerves II through XII unremarkable. Cerebellum unremarkable. Motor and sensory unremarkable throughout. Exam nonfocal. Psychiatric: Mood and affect are appropriate. Normal thought process. Answering questions appropriately. Notes: *This patient was seen and evaluated during the 2019 SARS-CoV-2 novel coronavirus pandemic period. Community viral transmission is ongoing at time of this encounter and the emergency department is operating under pandemic response procedures. Patient has chronic anemia, H&H today 8.5, 30.2 (was 8.1, 28.6). She is asymptomatic (no hypotension, dizziness with position changes, near syncope or syncope). She does take iron supplements routinely as prescribed. U/S shows a 5 cm complex right ovarian lesion suggestive of a hemorrhagic cyst. Additional smaller isoechoic to slightly hypoechoic bilateral ovarian lesions measuring up to 2.6 cm in the right ovary and 1.6 cm in the left ovary, which could represent endometriomas. Solid lesions are not entirely excluded. Recommend a 6 week follow-up examination. Moderate free fluid. I have talked with the patient about today's findings, in addition to providing specific details for plan of care. Reassessment at the time of disposition demonstrates that the patient is in no acute distress. Stressed the importance of further investigating this right ovarian lesion, she voices understanding and will call today to set up appointment. The patient is stable for discharge, counseling was provided and we discussed in great detail signs and symptoms that would prompt them to return to the Emergency Department. Medication, follow up and supportive care measures were reviewed and discussed. Voices understanding and is agreeable to plan of care. Denies any further questions or concerns at this time. Diagnostics: CBC, CMP, UA, HCGU, Pelvic US Therapeutics: None Prescription: None Impression: Anemia, chronic Ovarian lesion, right Dysfunctional uterine bleeding Plan: 1. Your lab work shows that your still anemic and should do iron replacement therapy. If you should become symptomatic (dizzy, feel like you'll pass out, pass out, etc..) you need to follow up. Your ultrasound today again shows the right ovarian lesion (unable to fully define it). YOU NEED TO FOLLOW UP WITH OBGYN (this needs to be further evaluated - more than what we have to offer in the ED). 2. You can alternate Tylenol and ibuprofen as needed for pain and fever management. 3. We encourage you to follow up with your primary care provider and/or recommended specialist in the next few days for re-evaluation and further care/management. 4. If your symptoms should worsen, new symptoms develop or any of the signs and symptoms we discussed should arise please return to the emergency room or call 911 (if needed). Definitive disposition and diagnosis as appropriate pending reevaluation and review of above. Abdominal Pain Score (Numeric/FACES): 3 - Related Data Allergies Allergy/AdvReac Type Severity Reaction Status Date / Time banana Allergy Numbness Verified 12/31/20 13:28 ze Allergy Numbness Verified 12/31/20 13:28 pineapple Allergy Numbness Verified 12/31/20 13:28 Home Meds: Home Meds Iron,Carb/Vit C/Vit B12/Folic [Iron 100 Plus Tablet] 1 tab PO DAILY 12/31/20 [History] Past Medical History - Past Health History Medical/Surgical History: Denies Medical/Surgical History HEENT History: Reports: None Cardiovascular History: Reports: None Respiratory History: Reports: None Gastrointestinal History: Reports: None Genitourinary History: Reports: None MARKETING INTELLIGENCE ANALYST History: Reports: None Musculoskeletal History: Reports: None Neurological History: Reports: None Psychiatric History: Reports: None Endocrine/Metabolic History: Reports: None Hematologic History: Reports: None Immunologic History: Reports: None Oncologic (Cancer) History: Reports: None Dermatologic History: Reports: Eczema - Infectious Disease History Infectious Disease History: Reports: None - Past Surgical History Head Surgeries/Procedures: Reports: None Social & Family History - Family History Family Medical History: No Pertinent Family History - Tobacco Use Tobacco Use Status *Q: Never Tobacco User - Caffeine Use Caffeine Use: Reports: Coffee ED ROS GENERAL - Review of Systems Review Of Systems: Comprehensive ROS is negative, except as noted in HPI. ED EXAM - Physical Exam Exam: See Below (SEe dictation) Course - Vital Signs Last Recorded V/S: Last Vital Signs Temp 97.0 F 12/31/20 13:29 Pulse 71 12/31/20 13:29 Resp 15 12/31/20 13:29 BP 124/61 12/31/20 13:29 Pulse Ox 99 12/31/20 13:29 - Orders/Labs/Meds Orders: Active Orders 24 hr Category Date Time Status CULTURE URINE [RM] Stat Lab 12/31/20 13:24 Received Labs: Laboratory Tests 12/31/20 12/31/20 12/31/20 Range/Units 13:24 13:24 13:26 WBC (4.0-11.0) K/uL RBC (4.30-5.90) M/uL Hgb (12.0-16.0) g/dL Hct (36.0-46.0) % MCV (80.0-98.0) fL MCH (27.0-32.0) pg MCHC (31.0-37.0) g/dL RDW Std Deviation (28.0-62.0) fl RDW Coeff of Genesis (11.0-15.0) % Plt Count (150-400) K/uL Neut % (Auto) (48.0-80.0) % Lymph % (Auto) (16.0-40.0) % [place] % (Auto) (0.0-15.0) % Eos % (Auto) (0.0-7.0) % Baso % (Auto) (0.0-1.5) % Neut # (Auto) (1.4-5.7) K/uL Lymph # (Auto) (0.6-2.4) K/uL [place] # (Auto) (0.0-0.8) K/uL Eos # (Auto) (0.0-0.7) K/uL Baso # (Auto) (0.0-0.1) K/uL Nucleated RBC % /100WBC Nucleated RBCs # K/uL Sodium 140 (136-145) mmol/L Potassium 4.3 (3.5-5.1) mmol/L Chloride 106 (98-107) mmol/L Carbon Dioxide 26.0 (21.0-32.0) mmol/L BUN 10 (7.0-18.0) mg/dL Creatinine 0.7 (0.6-1.0) mg/dL Est Cr Clr Drug Dosing 103.40 mL/min Estimated GFR (MDRD) > 60.0 ml/min Glucose 99 (74-106) mg/dL Calcium 8.2 L (8.5-10.1) mg/dL Total Bilirubin 0.3 (0.2-1.0) mg/dL AST 14 L (15-37) IU/L ALT 20 (14-63) IU/L Alkaline Phosphatase 77 (46-116) U/L Total Protein 7.6 (6.4-8.2) g/dL Albumin 3.5 (3.4-5.0) g/dL Globulin 4.1 H (2.6-4.0) g/dL Albumin/Globulin Ratio 0.9 (0.9-1.6) Urine Color YELLOW Urine Appearance CLEAR Urine pH 7.0 (5.0-8.0) Ur Specific [place] 1.020 (1.001-1.035) Urine Protein NEGATIVE (NEGATIVE) mg/dL Urine Glucose (UA) NEGATIVE (NEGATIVE) mg/dL Urine Ketones NEGATIVE (NEGATIVE) mg/dL Urine Occult Blood TRACE-INTACT H (NEGATIVE) Urine Nitrite NEGATIVE (NEGATIVE) Urine Bilirubin NEGATIVE (NEGATIVE) Urine Urobilinogen 0.2 (<2.0) EU/dL Ur Leukocyte Esterase TRACE H (NEGATIVE) Urine RBC 1-2 (0-2/HPF) Urine WBC 1-2 (0-5/HPF) Ur Epithelial Cells MODERATE (NONE-FEW) Urine Bacteria RARE (NEGATIVE) Urine Mucus FEW (NONE-MOD) Urine HCG, Qual NEGATIVE (NEGATIVE) 12/31/20 Range/Units 13:48 WBC 5.77 (4.0-11.0) K/uL RBC 4.58 (4.30-5.90) M/uL Hgb 8.5 L (12.0-16.0) g/dL Hct 30.2 L (36.0-46.0) % MCV 65.9 L (80.0-98.0) fL MCH 18.6 L (27.0-32.0) pg MCHC 28.1 L (31.0-37.0) g/dL RDW Std Deviation 56.9 (28.0-62.0) fl RDW Coeff of Genesis 24 H (11.0-15.0) % Plt Count 267 (150-400) K/uL Neut % (Auto) 50.9 (48.0-80.0) % Lymph % (Auto) 36.9 (16.0-40.0) % [place] % (Auto) 7.3 (0.0-15.0) % Eos % (Auto) 4.2 (0.0-7.0) % Baso % (Auto) 0.7 (0.0-1.5) % Neut # (Auto) 2.9 (1.4-5.7) K/uL Lymph # (Auto) 2.1 (0.6-2.4) K/uL [place] # (Auto) 0.4 (0.0-0.8) K/uL Eos # (Auto) 0.2 (0.0-0.7) K/uL Baso # (Auto) 0.0 (0.0-0.1) K/uL Nucleated RBC % 0.0 /100WBC Nucleated RBCs # 0 K/uL Sodium (136-145) mmol/L Potassium (3.5-5.1) mmol/L Chloride (98-107) mmol/L Carbon Dioxide (21.0-32.0) mmol/L BUN (7.0-18.0) mg/dL Creatinine (0.6-1.0) mg/dL Est Cr Clr Drug Dosing mL/min Estimated GFR (MDRD) ml/min Glucose (74-106) mg/dL Calcium (8.5-10.1) mg/dL Total Bilirubin (0.2-1.0) mg/dL AST (15-37) IU/L ALT (14-63) IU/L Alkaline Phosphatase (46-116) U/L Total Protein (6.4-8.2) g/dL Albumin (3.4-5.0) g/dL Globulin (2.6-4.0) g/dL Albumin/Globulin Ratio (0.9-1.6) Urine Color Urine Appearance Urine pH (5.0-8.0) Ur Specific [place] (1.001-1.035) Urine Protein (NEGATIVE) mg/dL Urine Glucose (UA) (NEGATIVE) mg/dL Urine Ketones (NEGATIVE) mg/dL Urine Occult Blood (NEGATIVE) Urine Nitrite (NEGATIVE) Urine Bilirubin (NEGATIVE) Urine Urobilinogen (<2.0) EU/dL Ur Leukocyte Esterase (NEGATIVE) Urine RBC (0-2/HPF) Urine WBC (0-5/HPF) Ur Epithelial Cells (NONE-FEW) Urine Bacteria (NEGATIVE) Urine Mucus (NONE-MOD) Urine HCG, Qual (NEGATIVE) Departure - Departure Time of Disposition: 15:35 Disposition: Home, Self-Care 01 Clinical Impression: Lesion of right ovary, Dysfunctional uterine bleeding, Chronic anemia - Discharge Information Instructions: Abnormal Uterine Bleeding, [id number] Referrals: PCP,None [Primary Care Provider] - Forms: ED Department Discharge Additional Instructions: The following information is given to patients seen in the emergency department who are being discharged to home. This information is to outline your options for follow-up care. We provide all patients seen in our emergency department with a follow-up referral. The need for follow-up, as well as the timing and circumstances, are variable depending upon the specifics of your emergency department visit. If you don't have a primary care physician on staff, we will provide you with a referral. We always advise you to contact your personal physician following an emergency department visit to inform them of the circumstance of the visit and for follow-up with them and/or the need for any referrals to a consulting specialist. The emergency department will also refer you to a specialist when appropriate. This referral assures that you have the opportunity for follow-up care with a specialist. All of these measure are taken in an effort to provide you with optimal care, which includes your follow-up. Under all circumstances we always encourage you to contact your private physician who remains a resource for coordinating your care. When calling for follow-up care, please make the office aware that this follow-up is from your recent emergency room visit. If for any reason you are refused follow-up, please contact the [facility] at and asked to speak to the emergency department charge nurse. [facility] [address] [place] [address] [address] Thank you for choosing the [facility] emergency department in [place] for your medical needs today. It was a pleasure caring for you. Today you were seen in the emergency department for vaginal bleeding and right lower quadrant pain. 1. Your lab work shows that your still anemic and should do iron replacement therapy. If you should become symptomatic (dizzy, feel like you'll pass out, pass out, etc..) you need to follow up. Your ultrasound today again shows the right ovarian lesion (unable to fully define it). YOU NEED TO FOLLOW UP WITH OBGYN (this needs to be further evaluated - more than what we have to offer in the ED). 2. You can alternate Tylenol and ibuprofen as needed for pain and fever management. 3. We encourage you to follow up with your primary care provider and/or recommended specialist in the next few days for re-evaluation and further care/management. 4. If your symptoms should worsen, new symptoms develop or any of the signs and symptoms we discussed should arise please return to the emergency room or call 911 (if needed). Sepsis Event Note (ED) - Evaluation Sepsis Screening Result: No Definite Risk - Focused Exam Vital Signs: Vital Signs Temp Pulse Resp BP Pulse Ox 12/31/20 13:29 97.0 F 71 15 124/61 99 - My Orders Last 24 Hours: My Active Orders 12/31/20 13:24 CULTURE URINE [RM] Stat - Assessment/Plan Last 24 Hours: My Active Orders 12/31/20 13:24 CULTURE URINE [RM] Stat
[2020-12-31 14:26] LABS: BLOOD UREA NITROGEN,BUN 10 mg/dL (7.0-18.0); CHLORIDE,CL 106 mmol/L (98-107); GLUCOSE RANDOM 99 mg/dL (74-106); POTASSIUM,K 4.3 mmol/L (3.5-5.1); SODIUM,NA 140 mmol/L (136-145)
--- NOTE | 2020-12-31 15:26 | US ---
INDICATION: Right lower quadrant pain. History of ovarian cyst versus mass TECHNIQUE: Multiple transvaginal sonographic images of the pelvis. COMPARISON: 11/06/2020 FINDINGS: Uterus: 7.2 x 4.0 x 3.0 cm. Normal echotexture of the myometrium. No masses. Endometrium: 6 mm in thickness. No sign of endometrial mass or fluid. Right ovary: 6.7 x 6.9 x 5.2 cm. A 4.6 x 3.7 x 5.0 cm complex hypoechoic right ovarian lesion containing heterogeneous internal echogenicities and low-level echoes. An adjacent 4.1 x 3.1 x 1.7 cm cystic structure. An additional 2.1 x 1.9 x 2.6 cm ovoid Iso to slightly hypoechoic structure, demonstrating few small foci of peripheral Doppler flow which may be related to adjacent ovarian parenchyma. Arterial and venous right ovarian Doppler flow documented. Left ovary: 3.3 x 3.7 x 3.3 cm. A 1.6 x 1.2 x 1.4 cm Iso to slightly hypoechoic left ovarian structure and an adjacent similar ovoid structure measuring 1.1 x 1.0 x 1.0 cm. Arterial and venous left ovarian Doppler flow documented. Cul-de-sac: Moderate free fluid. IMPRESSION: A 5 cm complex right ovarian lesion suggestive of a hemorrhagic cyst. Additional smaller isoechoic to slightly hypoechoic bilateral ovarian lesions measuring up to 2.6 cm in the right ovary and 1.6 cm in the left ovary, which could represent endometriomas. Solid lesions are not entirely excluded. Recommend a 6 week follow-up examination. Moderate free fluid. Dictated by Tavo Wilson MD @ Dec 31 2020 3:11PM Signed by Dr. Tavo Wilson @ Dec 31 2020 3:23PM
== END 2020-12-31 15:57 | disposition home or self-care (01) ==
LOC: MW.ED 13:11
DX: N93.8 Other specified abnormal uterine and vaginal bleeding (principal); N83.8 Other noninflammatory disorders of ovary, fallopian tube and broad ligament; D64.9 Anemia, unspecified; Z91.018 Allergy to other foods
CPT/HCPCS: 36415; 76856; 76856-26; 80053; 81001; 81025; 85025; 87086; 99284-25